=== PATIENT | female | born 1975 | race Caucasian/White ===

== ENCOUNTER 2021-12-26 12:56 | Outpatient (CLI) | payer BC, SELFPAY ==
--- NOTE | 2021-12-26 13:00 | CRLHL7_ITS ---
For Patients: As a result of the Century Cures Act, medical imaging exams and procedure reports are released immediately into your electronic medical record. You may view this report before your referring provider. If you have questions, please contact your health care provider. BILATERAL SCREENING MAMMOGRAM WITH COMPUTER-AIDED DETECTION TECHNIQUE: CC and MLO views were obtained. These mammographic images have been obtained using full-field digital technique. These mammographic images were interpreted with the benefit of computer-aided detection. COMPARISON FILM: 12/02/17, 02/12/16. FINDINGS: The breasts are extremely dense, which lowers the sensitivity of mammography IMPRESSION: There is no radiographic evidence for malignancy. ASSESSMENT: BI-RADS Category 1: Negative RECOMMENDATION: Routine screening mammogram in 1 year. A lay language report of this examination will be provided to the patient. Byron Bonds M.D. Diagnostic Radiologist [email or web address] NALDO/Dictated by: Byron Bonds MD @ 12/27/2021 1:07:00 PM (Electronically Signed)
== END 2021-12-26 12:57 | disposition home or self-care (01) ==
LOC: MAMMO 12:57
PROVIDERS: Visit Provider Physician Assistant Medical
DX: Z12.31 Encounter for screening mammogram for malignant neoplasm of breast (principal); R92.2 Inconclusive mammogram
CPT/HCPCS: 77063; 77067

== ENCOUNTER 2022-07-30 13:13 | Outpatient (CLI) | payer BC, SELFPAY ==
--- NOTE | 2022-07-30 13:00 | CRLHL7_ITS ---
For Patients: As a result of the Century Cures Act, medical imaging exams and procedure reports are released immediately into your electronic medical record. You may view this report before your referring provider. If you have questions, please contact your health care provider. Indication: Right groin pain Technique: Contrast CT pelvis Comparison: No comparison Findings: Urinary bladder appears unremarkable. Tiny fat containing right inguinal hernia without inflammatory change. Visualized portions of bowel appears unremarkable. Minimal degenerative changes of both hips. No suspicious bony lesions are seen. Impression: Small right fat containing inguinal hernia. No inflammatory changes seen. Please note that all CT scans at this facility use dose modulation, iterative reconstruction, and/or weight-based dosing when appropriate to reduce radiation dose to as low as reasonably achievable. Dictated by Yara Smith MD @ 07/30/2022 2:04:44 PM (Electronically Signed)
== END 2022-07-30 13:14 | disposition home or self-care (01) ==
PROVIDERS: PCP Physician Assistant Medical; Visit Provider Physician Assistant Medical
DX: R10.31 Right lower quadrant pain (principal); K40.90 Unilateral inguinal hernia, without obstruction or gangrene, not specified as recurrent
CPT/HCPCS: 72193; Q9967

== ENCOUNTER 2022-08-18 11:15 | Outpatient (CLI) | payer BC, SELFPAY | END 2022-08-18 11:16 | disposition home or self-care (01) | LOC: OP CLINIC 11:16 | PROVIDERS: PCP Physician Assistant Medical; Visit Provider Surgery | DX: Z12.11 Encounter for screening for malignant neoplasm of colon (principal); K64.8 Other hemorrhoids; K63.5 Polyp of colon; K62.1 Rectal polyp | CPT/HCPCS: 45385; 88305; 99153; J2250; J3010 ==

== ENCOUNTER 2022-10-23 10:49 | Outpatient (CLI) | payer BC, SELFPAY | END 2022-10-23 10:50 | disposition home or self-care (01) | PROVIDERS: PCP Physician Assistant Medical; Visit Provider Physician Assistant Medical | DX: Z00.00 Encounter for general adult medical examination without abnormal findings (principal); Z13.6 Encounter for screening for cardiovascular disorders | CPT/HCPCS: 80061 ==

== ENCOUNTER 2022-10-27 07:49 | Day surgery (SDC) | payer BC, SELFPAY ==
[2022-10-27] VITALS (15 sets, daily range): BP systolic 101–119; BP diastolic 60–86; PULSE 52–79; RESP 12–16; TEMP 36.7–36.8; O2SAT 90–99; BMI 24.5
--- OUTSIDE RECORDS SUMMARY | 2022-10-27 07:52 | XMS_ITS | Continuity of Care Document ---
Author Name Unknown Organization [facility] Address [address] [place] [address] Phone Care Team Providers Care Space Officer Name Role Phone Paul Lindo MD Unavailable Unavailable Allergies, Adverse Reactions, Alerts Substance Reaction Status Criticality No Known Allergies Active No Inform ation Procedures Procedure Date Office/Outpatient Visit, New Advance Directives Directive Yes / No Effective Date File Name No Information Encounters Encounter Description Practice Location Reason(s) For Visit Diagnoses Date Provider Providers Copied on Encounter Office/Outpa tient Visit, New [facility], [address], [place], [address], [place] tel:[phone] [facility], Joint Pain (chief complaint) Joint pain multiple sites Belgica Miller. [facility] [address], [place], [address], [place]. tel:[phone] Referring Provider: Paul Lanza, [facility] [address], [place], [address]. tel:[phone] Family History Family Member Type Diagnosis Age At Onset Problem No family history of Rheumat oid arthritis Payers Payer name Insurance type Covered alliance party ID Authoriza tion(s) Blue Plus BL [id number] Social History Type Description Quantity Date Captured Comments Alcohol Use Details Caffeine Use Details No Tobacco Use Status Occasional cigarette smoker Smoking Status Current some day smoker Smoking Tobacco Use Details Cigarette: No Details Available Cigarette: No Details Available Sex Female Vital Signs Date / Time: Height Weight BMI Pulse Rate Blood Pressure Temperature Respiratory Rate Body Surface Area Head Circumference Head Circ. Percentile Wt./Geovanni. Percentile BMI percentile Pulse Ox Inhaled Ox 8:44 AM 67.81 in 80.739 kg (178.00 lbs) 27.2 1 kg/m eter (2) 110/76 mm[Hg] 97.90 F Chief Complaint And Reason For Visit From encounter dated '05/25/2020 08:45'. Joint Pain (chief complaint) Reason For Referral Reason For Referral No Information Plan Of Treatment Date Type Action Status Goal Tobacco cessation counseling completed History Of Present Illness Encounter Date Complaint History Of Prese nt Illness Joint Pain Functional Status Date Functional Assessmen t Pain Score 6/10 Instructions Date Instruction Additional Infor sarah No Information Assessments Type Assessment Date assessment Joint pain multiple sites Patient Care Teams Name Effective Dates (start - stop) Status Members No Information
--- OUTSIDE RECORDS SUMMARY | 2022-10-27 07:52 | XMS_ITS | Continuity of Care Document ---
Author Name Unknown Organization [facility] Address [address] [place] [address] Phone Care Team Providers Care Shipping Support Name Role Phone Rafael Herrera MD Unavailable Unavailable Medications Medication Instructions Dosage Effective Dates (start - stop) Status Comments Percocet 5 mg-325 mg Tab take 1 by Oral route every 4 - 6 1.00 - Active mailed Flexeril 10 mg Tab take 1 by Oral route every TID 1.00 - Active mailed Procedures Procedure Date Postop followup visit Low back disk surgery/decompress 2009 PA Assist Low back disk surgery/decompre ss Office consultation, moderate 9 X-ray exam lwr spine, min 4 views [facility]patient [facility] Advance Directives Directive Yes / No Effective Date File Name No Information Encounters Encounter Description Practice Location Reason(s) For Visit Diagnoses Date Provider Providers Copied on Encounter [facility] [place], [address], [place], [address], [place] tel:[phone] No Information 0 Sharon Hall. [facility] [place], [address], [place], [place], [id number] , [place]. tel:[phone] Referring Provider: [facility] [address] [facility] [address], [place], [address]. tel:[phone] [facility], [address], [place], [address], [place] tel:0 [facility] No Information 0 Sharon Kevin. [facility], [address], [place], [place], [id number] , [place]. tel: [phone] [facility], [address], [place], [address], [place] tel:[phone] [facility] No Information 0 Sharon Rafael. [facility], [address], [place], [place], [id number] , [place]. tel: [phone] [facility], [address], [place], [address], [place] tel:[phone] [place] [address] No Information 0 Sharon Kevin. [facility], [address], [place], [place], [address] , [place]. tel: [phone] Referring Provider: [facility] [address] [employer] [address], [place], [address]. tel:[phone] Office consultation, moderate [facility], [address], [place], [address], [place] tel:0 [facility] No Information 9 Sharon Rafael. [facility], [address], [place], [place], [address] , [place]. tel: [phone] Referring Provider: [facility] [address], [place], [address]. tel:[phone] Office/outpat ient visit,new, low [facility], [address], [place], [address], [place] tel:[phone] [facility] No Information Mar-0 8-200 7 Nitin Sierra. [facility], [address], [address], [place], [place], [address] , [place]. tel:[phone] Referring Provider: Rigo Abarca, [facility] [address] [place] [address], [address], [place], [address] . tel:[phone] Family History Family Member Type Diagnosis Age At Onset No Information Payers Payer name Insurance type Covered libertarian ID Nilsa hastingsstephany(s) [id number] Social History Type Description Quantity Date Captured Comments Sex Female Smoking Status No Information Chief Complaint And Reason For Visit No Information Reason For Referral Reason For Referral No Information Plan Of Treatment Date Type Action Status No Information History Of Present Illness Encounter Date Complaint History Of Prese nt Illness No Information Functional Status Date Functional Assessmen t No Information Instructions Date Instruction Additional Infor mation No Information Assessments Type Assessment Date No Information Patient Care Teams Name Effective Dates (start - stop) Status Members No Information
[2022-10-27] MEDS: LACTATED RINGERS 1000 ML 1,000 ML 100 ML IV (08:30)
[2022-10-27] MEDS: SODIUM CHLORIDE 0.9 % (FLUSH) 10 ML SYRINGE IVF (08:34)
--- NOTE | 2022-10-27 09:10 | PM.GSPRC ---
Operative Note Date of procedure: 10/27/22 Pre-op diagnosis: 1. Symptomatic right inguinal hernia. Post-op diagnosis: 1. Right femoral hernia. Type of Procedure: 1. Laparoscopic right inguinal hernia repair with mesh. Indications: 39-year-old female was seen in clinic for evaluation of right inguinal hernia. Patient stated that in the last few months she noticed a right groin bulge that was prominent with increased activities such as weightlifting. She also noticed the bulge being bigger when she was more active. She noticed pain at the bulge with increased activity. She did not have any episodes of incarceration. Patient had a pelvic CT done that showed a small fat containing right inguinal hernia. On clinical exam with the patient lying down there was a palpable bulge noted in the right groin that was reducible. The bernal of air was heard when reducing his bulge. Given patient's clinical history and her physical exam, a laparoscopic right inguinal hernia repair with mesh was recommended. The procedure was discussed in detail. The risks associated procedure including infection, bleeding, injury to preperitoneal organs, and hernia recurrence were all discussed with the patient, she agreed to proceed. Procedure Description: After discussing the risks and benefits of the procedure, the patient signed informed consent.? The operative site was marked and the patient was brought to the operating room and placed on the operating table in supine position.? Care was taken to pad the patient's pressure points.?? The patient was then intubated by anesthesia.?? The operative site was then prepped and draped in the usual sterile fashion.? A time-out was then performed. An infraumbilical skin incision was made with a scalpel and subcutaneous tissues were dissected with electrocautery. Anterior sheath was incised with electrocautery and rectus muscle was retracted laterally. A 12 mm spacemaker dissector system was introduced into the incision and advanced over the posterior sheath. Preperitoneal space was dissected with manually insufflating air under direct visualization. Once the tissues were dissected, the balloon was deflated and removed.? A laparoscopic balloon was placed into preperitoneal space and balloon was inflated. Preperitoneal space was insufflated with air. No bleeding was identified upon examination of preperitoneal space. We then placed two 5 mm ports suprapubically under direct visualization. ? The preperitoneal tissues were bluntly dissected with graspers.? The pubic bone was identified and? cleared from preperitoneal tissue.?? Inferior epigastrics on right?side were retracted towards the abdominal wall.??The round ligament? was identified and dissected circumferentially.? This was done bluntly. The right femoral hernia space was identified and fat was noted to be incarcerated in this hernia space. The preperitoneal fat was reduced bluntly.??The round ligament was then clipped with 5 mm clips proximally and distally and divided with hot scissors between the clips.? When adequate space was developed for mesh placement, a right sided Bard 3D max mesh was used and positioned over the right hernia defect. The mesh was tacked medially and laterally with?tacks.? Additional local anesthetic was injected directly into pre-peritoneal space. ? The space was deflated under direct visualization and mesh appeared to be still lying in a good position. The ports were then removed. Anterior sheath was then closed with a running 0-0 vicryl suture. Skin was closed with 4-0 monocryl using subcuticular stitch. Steri strips were applied over the laparoscopic?incisions. ? All counts were correct at the end of the case. Patient tolerated this procedure well and was transferred to PACU in stable condition. Findings: Small right femoral hernia with incarcerated preperitoneal fat. Implants: 3D max Bard mesh. Anesthesia: GETA Surgeon: Carlene Mares MD Estimated blood loss (mL): 5 Condition: stable Disposition: PACU
[2022-10-27] MEDS: BUPIVACAINE 0.25% 30 ML INJECTION (09:40)
--- NOTE | 2022-10-27 10:26 | W.ANESCHARGE ---
Anesthesia Charges Start Date/Time Anesthesia Start Date: 10/27/22 Anesthesia Start Time: 09:19 Stop Date/Time Anesthesia Stop Date: 10/27/22 Anesthesia Stop Time: 10:26
[2022-10-27] MEDS: fentaNYL 100 MCG/2 ML inj 50 MCG IVP (10:45)
[2022-10-27] MEDS: HYDROCODONE-ACETAMIN 5-325 MG 1 TAB PO (11:41)
== END 2022-10-27 12:20 | disposition home or self-care (01) ==
PROVIDERS: PCP Physician Assistant Medical; Visit Provider Surgery
PROC: (CPT 49650; principal; 2022-10-27 09:15)
DX: K40.30 Unilateral inguinal hernia, with obstruction, without gangrene, not specified as recurrent (principal)
CPT/HCPCS: 49650; 00830; 84703; A9270; C1781; J0330; J1100; J1885; J2250; J2405; J2704; J2710; J3010; J3490; J7120